=== PATIENT | male | born 1995 | race Two or more races ===

== ENCOUNTER 2016-10-12 17:07 | Emergency (ER) | payer SELFPAY ==
[~2016-10-12 17:07] MED LIST: CLONIDINE HCL0.3 M1; TAMIFLU75 MG/CAP PO
[2016-10-12] MEDS ORDERED: NO HOME MEDICATION (17:23)
[2016-10-12 18:04] LABS: BASO ABSOLUTE COUNT 0.1 tho/cmm (0.0-0.2); EOS % 5.8 % (0-7); EOSINOPHIL ABSOLUTE COUNT 0.5 tho/cmm (0.0-0.7); HGB-HEMOGLOBIN 15.5 gm/dl (13.5-17.0); IMMATURE GRANULOCYTES ABSOLUTE 0.04 tho/cmm (0-0.03); IMMATURE GRANULOCYTES PERCENT 0.5 % (0-0.3); LYMPH % 34.4 % (20-45); LYMPH ABSOLUTE COUNT 2.8 tho/cmm (0.8-4.5); MCH (MEAN CORPUSCULAR HGB) 26.8 pg (28.0-32.0); MCHC MEAN CORPUSCULAR HGB CONC 34.4 % (32.0-36.0); MCV (MEAN CELL VOLUME) 77.9 fl (82.0-96.0); MEAN PLATELET VOLUME 9.8 cmc (9.4-12.4); MONO % 10.9 % (0-12); MONOCYTE ABSOLUTE COUNT 0.9 tho/cmm (0.0-1.2); NEUTROPHIL ABSOLUTE COUNT 3.8 tho/cmm (1.6-8.0); NEUTROPHIL-AUTOMATED 3.8 tho/cmm (1.6-8.0); NEUTROPHILS % 47.4 % (40-80); PLATELET COUNT 187 tho/cmm (150-450); RED BLOOD COUNT 5.78 mil/cmm (4.40-5.70); RED CELL DISTRIBUTION WIDTH 13.5 % (12.4-16.4); WHITE BLOOD COUNT 8.1 tho/cmm (4.0-10.0)
[2016-10-12 18:28] LABS: ALB/GLOB RATIO 0.7 (0.8-2.0); ALBUMIN 3.2 g/dl (3.5-5.0); ALKALINE PHOSPHATASE 124 U/L (33-138); ALT/SGPT 115 U/L (12-78); AMYLASE 39 U/L (20-90); ANION GAP 14 mmol/L (0-20); AST/SGOT 52 U/L (10-40); BILIRUBIN,TOTAL 0.6 mg/dl (0.0-1.5); BLOOD UREA NITROGEN 14 mg/dl (6-24); CALCIUM 8.8 mg/dl (8.5-10.5); CARBON DIOXIDE-VENOUS 27 mmol/L (22-32); CHLORIDE 106 mmol/l (96-110); CKMB 0.8 ng/ml (<3.6); CREATININE 1.67 mg/dl (0.60-1.30); GLUCOSE 105 mg/dL (70-110); LIPASE 86 U/L (73-393); SODIUM 143 mmol/L (135-145); eGFR VALUE FOR BLACK 67 mL/Min
[2016-10-12 18:45] LABS: CREATINE PHOSPHOKINASE (CPK) 436 U/L (35-232)
== END 2016-10-12 20:10 ==
LOC: EDMED 17:07
PROVIDERS: Emergency Medicine
DX: S23.41XA Sprain of ribs, initial encounter (principal); R79.89 Other specified abnormal findings of blood chemistry; Z72.0 Tobacco use; X58.XXXA Exposure to other specified factors, initial encounter
CPT/HCPCS: J7030; Q9967